=== PATIENT | male | born 1945 | race Caucasian/White ===

== ENCOUNTER 2022-06-28 13:43 | Emergency (ER) | payer MEDICARE, BC ==
[~2022-06-28] VITALS: Ht 170.2 cm; Wt 74.4 kg
--- NOTE | 2022-06-28 13:57 | NUR ---
BIBDAUGHTER FOR C/O MID-STERNAL CHEST PAIN 2/10, HEADACHE, N/V X 1.5 HOUR. PAIN IS 2/10 ON PAIN SCALE. PAIN IS DESCRIBED PRESSURE-LIKE AND DISCOMFORT, PAIN IS NON-RADIATING. ATTACHED TO MONITOR. AWAITING MD BETHEA.
--- NOTE | 2022-06-28 14:30 | NUR ---
DR AVELAR AT BEDSIDE
--- NOTE | 2022-06-28 14:38 | NUR ---
IV ESTABLISHED R AC 20G. LABS DRAWN AND COLLECTED AND SENT.
[2022-06-28 15:03] LABS: BASOPHILS % (AUTO) 0.3 % (0.0-2.0); EOSINOPHILS % (AUTO) 0.7 % (0.0-6.0); HEMATOCRIT 42 % (39-51); HEMOGLOBIN 13.8 g/dL (13.5-17.5); LYMPHOCYTES # (AUTO) 1.8 K/uL (0.8-4.8); MEAN CORPUSCULAR HGB CONC 33 g/dl (31.0-36.0); MEAN CORPUSCULAR VOLUME 88 fL (80-96); MONOCYTES # (AUTO) 0.6 K/uL (0.1-1.30); MONOCYTES % (AUTO) 5.9 % (2.0-12.0); NEUTROPHILS # (AUTO) 8.2 K/uL (1.8-8.9); NEUTROPHILS % (AUTO) 76.1 % (43.0-81.0); PLATELET COUNT (AUTO) 241 K/uL (150-450); RED BLOOD CELL COUNT(AUTO) 4.69 MIL/uL (4.5-6.0); WHITE BLOOD COUNT (AUTO) 10.8 K/uL (4.3-11.0)
[2022-06-28 15:15] LABS: CALCIUM, SERUM 9.3 mg/dL (8.5-10.1); CARBON DIOXIDE 25 mmol/L (21-32); CHLORIDE 104 mmol/L (98-107); CREATININE 1.2 mg/dL (0.6-1.3); GLUCOSE 146 mg/dL (74-106); POTASSIUM 4.1 mmol/L (3.5-5.1); SODIUM SERUM 139 mmol/L (136-145); UREA NITROGEN, BLOOD 22 mg/dL (7-18)
[2022-06-28 18:53] VITALS: BP 152/67
--- NOTE | 2022-06-28 18:53 | NUR ---
Patient discharged to home in stable condition. Written and verbal after care instructions given. Patient verbalizes understanding of instruction.
== END 2022-06-28 18:54 | disposition home or self-care (01) ==
LOC: ER 14:08
DX: R07.9 Chest pain, unspecified (principal); I10 Essential (primary) hypertension; E11.9 Type 2 diabetes mellitus without complications
CPT/HCPCS: 36415; 71045-TC; 80048-TC; 83735-TC; 84484-TC; 85025-TC